=== PATIENT | female | born 1945 | race Caucasian/White ===

== ENCOUNTER 2023-05-21 15:33 | Emergency (ER) | payer MEDICARE, SELFPAY ==
[2023-05-21 15:34] VITALS: BP 129/59; PULSE 63; RESP 18; TEMP 36; O2SAT 99; BMI 25.3
--- NOTE | 2023-05-21 17:31 | EX.ED.DYSGE1 ---
HPI History of Present Illness Chief Complaint: General Illness Narrative Narrative: 77-year-old female past medical history of pancreatic cancer that is recurrent, states that she presents to the emergency department to have her Mediport flushed with heparin. She states that she usually sees the [facility] in [place], and while she is currently not undergoing infusions for chemotherapy and taking pills, she does not want to have her Mediport removed at this time because she had a previous Mediport that was removed, and her pancreatic cancer with metastasis came back. She states that she is supposed to have it flushed every 6 weeks, and the last time it was flushed was at the end of March, but she is currently not in [place] and cannot have it flushed. She was here with her a week or so ago and was told that that could be done here. She denies any problems. ROS ROS ED ROS Narrative Constitutional: No fever, no chills. HEENT: No sore throat. No neck pain. No loss of vision. No rhinorrhea. Cardiovascular: No chest pain. No palpitations. No pedal edema. Respiratory: No cough, no shortness of breath. Abdominal: No abdominal pain. No nausea. No vomiting. Genitourinary: No dysuria. No hematuria. Musculoskeletal: No myalgias. No arthralgias. Neurologic: No headaches. No dizziness. No lightheadedness. Skin: No rash. No change in color. Psychiatric: No depression. No anxiety. EXAM Physical Exam Narrative Exam Narrative: Afebrile. Vital signs noted. HEENT: Normocephalic. Atraumatic. PERRL, EOMI. Neck soft and supple. No point tenderness or step off. Cardiovascular: Regular rate and rhythm. No murmurs, rubs, or gallops appreciated. Positive Mediport on right side of chest, without erythema or fluctuance. Respiratory: No tachypnea. Lungs clear to auscultation bilaterally. Gastrointestinal: Abdomen soft, nontender, with normoactive bowel sounds. No rebound or guarding. Neurological: Awake. Alert. Nonfocal, nonlateralizing. Skin: No rash. Normal color. No pallor. Musculoskeletal: No pedal edema. Full range of motion extremities. Const Vital Signs: 05/21/23 15:34 Temperature 96.8 F L Temperature Source Temporal Pulse Rate 63 Respiratory Rate 18 Blood Pressure 129/59 H Blood Pressure Mean 82 Pulse Ox 99 Oxygen Delivery Method Room Air MDM MDM MDM Narrative Medical decision making narrative: And is here for heparin flush of her Mediport. Her medical screening exam is negative. I do not feel she requires any laboratory work or imaging. I feel she be discharged to follow-up with the [facility] in [place] and continue to have her Mediport flushed every 6 weeks. Return instructions were reviewed. Disposition is discharged home in stable condition. Discharge Plan Triage Chief Complaint: General Illness ED Provider: Epi Anand Dx/Rx/DC Orders Clinical Impression: History of insertion of tunneled central venous catheter (CVC) with port, Encounter for medical screening examination Instructions: ED Screening Exam Medical Nonurgent Primary Care Provider: NOT,DEFINED Referrals: NOT,DEFINED [Primary Care Provider] - Activity Restrictions/Additional Instructions: Have your Mediport flushed again in 6 weeks with heparin. Disposition Disposition: Home, Self Care
== END 2023-05-21 18:21 | disposition home or self-care (01) ==
LOC: ED 18:18
PROVIDERS: Emergency Provider Emergency Medicine; Visit Provider Emergency Medicine
DX: Z00.00 Encounter for general adult medical examination without abnormal findings (principal); Z95.828 Presence of other vascular implants and grafts; Z85.07 Personal history of malignant neoplasm of pancreas; Z92.21 Personal history of antineoplastic chemotherapy
CPT/HCPCS: 99284

== ENCOUNTER 2024-05-26 09:45 | Emergency (ER) | payer MEDICARE, SELFPAY ==
[2024-05-26 09:46] VITALS: BP 142/70; PULSE 89; RESP 18; TEMP 36.4; O2SAT 100; BMI 25.0
--- NOTE | 2024-05-26 10:00 | EDS_ITS ---
HPI History of Present Illness Chief Complaint: Back Detail of Chief Complaint: Back pain due to metastasis T6-T8 with pathologic fracture T7 Informant: patient and spouse/S.O. Onset/Context/Timing Onset: Weeks Context: Gradual Onset Chronic pain exacerbated by: Movement Timing: Continuous Quality: Dull and Aching Location: Thoracic Current Severity: Moderate Maximum Severity: Severe Worsened by: improves with Movement, Bending and Lifting Relieved by: Nothing Associated Symptoms Associated Symptoms: Urinary Incontinence and - (Denies saddle paresthesia anesthesia. Denies foot drop.); Negative for Numbness, Tingling, Radiation to Right Leg, Radiation to Left Leg, Fever, Abdominal Pain, Dysuria, Unable to Ambulate, Unable to Transfer, Constipation or Fecal Incontinence Narrative Narrative: Patient is a 78-year-old woman. She is seen at the [place] at [facility]. She is visiting. She presents because of pain in her back that is worse. She is present hydromorphone. Called a prescription in for fentanyl. Pharmacy would not fill since [place] and suppliers are apparently out. Patient reports incontinence. She feels her bladder is distended. This has been an issue for greater than 1 to 2 months. She denies fever, chills night sweats. Patient does have renal insufficiency with a creatinine approximate 1 month ago of 2.2. She had an MRI February 20, 2024 that revealed metastasis to the transverse process of T6 with pathologic fracture and retropulsion of fragments T7 with impingement on spinal cord. She also has involvement of T8. She was diagnosed with pancreatic cancer. Patient denies fever or chills. Patient was scheduled for kyphoplasty. This was delayed because she developed a DVT left common femoral and presently on Eliquis. Prior similar symptoms: Yes Recent Illness/Hospitalization: No PFSH [facility] Medical History (Updated 05/26/24 @ 15:[address] 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 Augustus Nelson MD) household members: spouse Smoking Status: Unknown if ever smoked ROS ROS ED Constitutional Constitutional ED: Denies chills, fever(s), subjective or sweats Eyes Eyes: Denies blurry vision or change in vision Cardiovascular Cardiovascular: Denies chest pain, orthopnea, palpitations or paroxysmal nocturnal dyspnea Respiratory/Chest Respiratory/Chest: Reports dyspnea; Denies dyspnea on exertion, orthopnea or paroxysmal nocturnal dyspnea Gastrointestinal Gastrointestinal: Denies abdominal pain, nausea or vomiting Genitourinary Genitourinary ED: Denies dysuria, hematuria or urinary frequency Musculoskeletal Musculoskeletal: Reports back pain; Denies arthralgias or myalgias Integumentary Denies Abrasions or rash Neurologic Neurologic: Denies paresthesias or weakness Hematologic/Lymphatic Hematologic/Lymphatic: Denies easy bleeding or easy bruising EXAM Physical Exam Const Vital Signs: 05/26/24 09:46 05/26/24 13:45 Temperature 97.6 F L Temperature Source Temporal Pulse Rate 89 82 Respiratory Rate 18 Blood Pressure 142/70 H 156/72 H Blood Pressure Mean 94 100 Pulse Ox 100 99 Oxygen Delivery Method Room Air Room Air Positive well nourished and well developed Constitutional Narrative: Patient appears uncomfortable. She grimaces with movement. General Appearance ED: well developed and pallor HEENT Reports moist mucous membranes HEENT Narrative: Head is atraumatic normocephalic. Ears normal. Nares patent. Eyes PERRL and EOMs intact bilaterally General Eye ED: Yes pale conjunctiva; Negative for scleral icterus Neck no lymphadenopathy, supple and no JVD Resp normal respiratory effort and clear to auscultation bilaterally Cardio regular rate, regular rhythm, S1 normal heart sound, S2 normal heart sound and no murmurs GI normal to inspection, nondistended, normoactive bowel sounds and soft to palpation; Negative for non-tender or non-distended GI Narrative: There is tenderness over the suprapubic area. Bladder in my opinion is distended but she is on percussion. Will obtain ultrasound to assess volume. Back/Spine normal to inspection Extremity Extremity Narrative: Patient has a swollen discolored left lower extremity consistent with a DVT. Neuro oriented x3 and no sensory deficits noted Neuro Narrative: EHLs intact bilaterally. Normal sensation L3-S1 dermatome. Plantar dorsiflexion 5/5. Patient's gait was not observed. Sensorium / Orientation: alert Motor Exam: strength 5/5 throughout Plantar Reflex: Downgoing: bilateral (There is no clonus.) Psych mental status grossly normal Skin no wounds General Skin Exam: pallor MDM MDM MDM Narrative Medical decision making narrative: With history of renal failure will obtain BMP to assess BUN and creatinine. Concern is that patient's incontinence is actually overflow incontinence. If this is the case we will have nurse place Heck and patient will need an MRI of her thoracic spine to evaluate if fragments are causing more than just spinal stenosis that was noted on MRI performed on February 20, 2024. History & Record Review Additional record(s) reviewed:: Prior outpatient record and Prior labs Lab Data Labs: Laboratory Results - last 24 hr 05/26/24 10:10 WBC 7.0 RBC 3.65 L Hgb 10.8 L Hct 33.9 L MCV 92.9 MCH 29.6 MCHC 31.9 L RDW Std Deviation 48.8 H RDW Coeff of Anne 14.4 Plt Count 239 MPV 9.5 Immature Gran % (Auto) 0.600 Neut % (Auto) 77.0 H Lymph % (Auto) 11.6 L [place] % (Auto) 8.9 Eos % (Auto) 1.6 Baso % (Auto) 0.3 Absolute Neuts (auto) 5.4 Absolute Lymphs (auto) 0.81 L Nucleated RBC % 0 Sodium 141 Potassium 3.9 Chloride 109 H Carbon Dioxide 23.0 Anion Gap 9 BUN 29 H Creatinine 1.83 H Estim Creat Clear Calc 25.15 Est GFR (MDRD) Af Amer 34 L Est GFR (MDRD) Non-Af 28 L BUN/Creatinine Ratio 15.8 Glucose 179 H Calcium 8.9 Radiography Diagnostic Testing: Clinical Impression(s) from Imaging Studies Thoracic Spine MRI 05/26/24 12:16 IMPRESSION: Findings consistent with metastatic marrow involvement T6, T7 and T8 with severe pathologic T7 compression fracture and retropulsed fragment producing moderately severe central stenosis at T7. Electronically Signed: Tuan Guadarrama MD at 15:25 EDT , Management Discussion w/another healthcare provider: Other (Spine caregiver for [facility] recommended MRI because of increased pain. 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
[2024-05-26] MEDS: HYDROmorphone 1 MG/ML Syringe 0.5 MG IV (10:10)
[2024-05-26 10:24] LABS: Absolute Lymphocyte Count 0.81 X10^3/uL (0.83-4.51); Absolute Neutrophil Count 5.4 X10^3/uL (2.0-7.7); Basophil# 0.02 X10^3/uL; Basophil% 0.3 % (0-1); Eosinophil# 0.11 X10^3/uL; Eosinophils% 1.6 % (0-5); Hematocrit 33.9 % (37-47); Hemoglobin 10.8 g/dL (12.0-15.0); Lymphocyte # 0.81 X10^3/ul (0.83-4.51); Lymphocyte % 11.6 % (19-41); Mean Corp Hgb Conc 31.9 g/dL (32-36); Mean Corpuscular Hgb 29.6 pg (27.0-32.0); Mean Corpuscular Volume 92.9 fL (81-99); Mean Platelet Vol. 9.5 fl (6.2-12.0); Monocyte# 0.62 X10^3/uL; Monocyte% 8.9 % (0-10); NRBC Flagged by Analyzer 0 % (0-5); Neutrophil # 5.39 X10^3/uL (2.7-7.7); Platelet Count 239 K/mm3 (150-450); RBC Distribution Width CV 14.4 % (11.6-14.6); RBC Distribution Width SD 48.8 fl (35.1-43.9); Red Blood Count 3.65 M/mm3 (4.2-5.4)
[2024-05-26 10:32] LABS: Anion Gap 9 (5-15); BUN 29 mg/dL (7-18); BUN/Creat Ratio 15.8 RATIO (10-20); Calcium,Total 8.9 mg/dL (8.5-10.1); Chloride 109 mmol/L (98-107); Creatinine, Serum 1.83 mg/dL (0.55-1.02); EST Glomerular Filtration Rate 28 mL/min (>60); Est Glom Filt Rate - Afr Amer 34 mL/min (>60); Estimated Creatinine Clearance 25.15 ml/min; Glucose 179 mg/dL (74-106); Potassium 3.9 mmol/L (3.5-5.1); Sodium Level 141 mmol/L (136-145)
--- NOTE | 2024-05-26 12:16 | MRI_ITS ---
INDICATION: Metastasis T6, T7 and T8, pathologic fracture T7 with increased pain and difficulty urinating EXAMINATION: MRI - MR Spine Thoracic W/O Contrast TECHNIQUE: Multiplanar and multisequence MR images of the thoracic spine. IV Contrast Dosage and Agent: None. COMPARISON: None. FINDINGS: VERTEBRAE: Severe T7 compression fracture with retropulsed fragment. Abnormal marrow signal in the T6, T7 and T8 vertebral bodies consistent with metastatic disease. VERTEBRAL ALIGNMENT: Normal. There is preservation of the normal thoracic kyphosis. DISCS: Normal disc height and morphology. Moderately severe central stenosis at T7 due to the retropulsed fragment from the vertebral body. CORD: Thoracic cord tented at the level of T7 by the retropulsed fragment. No myelopathic signal changes. Normal conus medullaris. SOFT TISSUES: Unremarkable. MRI/Spine Thoracic (Routine) IMPRESSION: Findings consistent with metastatic marrow involvement T6, T7 and T8 with severe pathologic T7 compression fracture and retropulsed fragment producing moderately severe central stenosis at T7. Electronically Signed: Tuan Guadarrama MD at 15:25 EDT ,
[2024-05-26 13:45] VITALS: BP 156/72; PULSE 82; O2SAT 99
[2024-05-26] MEDS: HYDROmorphone 0.5 MG/0.5 ML SYRINGE IV (13:50)
[2024-05-26 16:23] VITALS: BP 160/70; PULSE 89; RESP 18; TEMP 35.9; O2SAT 96
== END 2024-05-26 16:24 | disposition home or self-care (01) ==
PROVIDERS: Emergency Provider Emergency Medicine; Visit Provider Emergency Medicine
DX: M48.54XA Collapsed vertebra, not elsewhere classified, thoracic region, initial encounter for fracture (principal); C79.51 Secondary malignant neoplasm of bone; C25.9 Malignant neoplasm of pancreas, unspecified; I82.412 Acute embolism and thrombosis of left femoral vein; Z79.01 Long term (current) use of anticoagulants; G89.29 Other chronic pain; D63.1 Anemia in chronic kidney disease; N39.490 Overflow incontinence; D63.0 Anemia in neoplastic disease; N18.9 Chronic kidney disease, unspecified
CPT/HCPCS: 72146; 80048; 85025; 96374; 96376; 99283; A4216